=== PATIENT | female | born 1975 | race African-American/Black ===

== ENCOUNTER 2019-09-08 01:26 | Emergency (ER) | payer SELFPAY ==
[~2019-09-08] VITALS: Ht 162.6 cm; Wt 104.0 kg
[2019-09-08] MEDS ORDERED: FUROSEMIDE 40MG TABLET PO ONE (02:15)
[2019-09-08] MEDS ORDERED: AMLODIPINE 10MG TABLET PO ONE (02:15)
[2019-09-08 03:23] LABS: BASOPHILS % 1.1 % (0.0-2.0); EOSINOPHILS % 3.9 % (0.0-5.0); HEMATOCRIT. 36.4 % (36.0-48.0); LYMPHOCYTES % 24.1 % (20.0-50.0); MEAN CORPUSCULAR HEMOGLOBIN 26.1 pg (28.0-32.0); MEAN CORPUSCULAR VOLUME 79.4 fL (81.0-99.0); MONOCYTES % 8.5 % (2.0-8.0); NEUTROPHILS % 62.4 % (40.0-76.0); PLATELET 203 x1000/uL (130-400); RED BLOOD CELL COUNT 4.58 mill/uL (4.2-5.4)
[2019-09-08 03:24] LABS: CHLORIDE 105 mEq/L (98-107)
[2019-09-08 04:01] VITALS: BP 131/83
== END 2019-09-08 04:06 | disposition home or self-care (01) ==
LOC: ER 01:26
DX: R07.89 Other chest pain (principal); E66.9 Obesity, unspecified; I10 Essential (primary) hypertension; F17.200 Nicotine dependence, unspecified, uncomplicated; Z71.6 Tobacco abuse counseling; Z91.14 Patient's other noncompliance with medication regimen
CPT/HCPCS: 36415; 71045; 83880; 84484; 93005; 99284

== ENCOUNTER 2022-10-02 17:02 | Emergency (ER) | payer MEDICAID ==
[~2022-10-02] VITALS: Ht 172.7 cm; Wt 94.0 kg
[2022-10-02] MEDS ORDERED: METH-653 MT (22:12)
[2022-10-02] MEDS ORDERED: KETOROLAC 60MG/2ML VIAL IM ONE (23:00)
[2022-10-02 23:19] VITALS: BP 118/70
== END 2022-10-02 23:20 | disposition home or self-care (01) ==
LOC: ER 17:25
DX: M54.30 Sciatica, unspecified side (principal); I10 Essential (primary) hypertension; Z98.890 Other specified postprocedural states
CPT/HCPCS: 81025; 96372; 99283; J1885